=== PATIENT | male | born 1990 | race American Indian/Alaskan Native ===

== ENCOUNTER 2017-12-14 09:15 | Emergency (ER) | payer BC, OTHER ==
[2017-12-14 09:16] VITALS: BMI 25.0
[2017-12-14 09:35] VITALS: RESP 18; TEMP 98.7
--- NOTE | 2017-12-14 10:32 | C.PDOC ---
History Of Present Illness 27 year old male presents to the ED c/o stabbing right sided chest pain that woke him up this morning. Patient describes pain as non radiating that worsens with deep breathing and right arm movement. Patient states he had similar episode File[place] night that started during dinner and later resolved spontaneously. Patient denies any recent prolonged immobilization, sudden cardiac in his family, calf tenderness, nausea, vomit, diarrhea, SOB. Time Seen by Provider: 12/14/17 09:52 Chief Complaint (Nursing): Chest Pain History Per: Patient History/Exam Limitations: no limitations Onset/Duration Of Symptoms: Days Current Symptoms Are (Timing): Still Present Quality: Sharp Modifying Factors: None Exacerbating Factors: Movement, Deep Breathing Alleviating Factors: None Recent travel outside of the [place]: No Additional History Per: Patient Past Medical History Reviewed: Historical Data, Nursing Documentation, Vital Signs Vital Signs: Last Vital Signs Temp 98.7 F 12/14/17 09:32 Pulse 72 12/14/17 13:51 Resp 18 12/14/17 13:51 BP 118/62 12/14/17 13:51 Pulse Ox 97 12/14/17 13:51 - Medical History PMH: Anxiety, Seizures Denies: Chronic Kidney Disease Surgical History: No Surg Hx - [facility] Procedures INJECT/INFUSE ELECTROLYT (05/29/15) INJECT/INFUSE NEC (05/29/15) Family History: States: Diabetes Other Family History: No known cardiac history - Social History Hx Tobacco Use: Yes Hx Alcohol Use: Yes Hx Substance Use: No - Immunization History Hx Tetanus Toxoid Vaccination: No Hx Influenza Vaccination: No Hx Pneumococcal Vaccination: No Review Of Systems Constitutional: Negative for: Fever, Chills Cardiovascular: Positive for: Chest Pain. Negative for: Palpitations Respiratory: Negative for: Cough, Shortness of Breath Gastrointestinal: Negative for: Nausea, Vomiting, Abdominal Pain Musculoskeletal: Negative for: Back Pain Skin: Negative for: Rash Neurological: Negative for: Weakness, Numbness, Headache Physical Exam - Physical Exam Appears: Non-toxic, No Acute Distress Skin: Normal Color, Warm, Dry Head: Atraumatic, Normacephalic Eye(s): bilateral: Normal Inspection Nose: No Discharge, No Deformity Oral Mucosa: Moist Neck: Normal ROM, Supple Chest: Symmetrical, Tenderness (reproducible right sided chest pain medial to breast, worse with movement) Cardiovascular: Rhythm Regular, No Murmur Respiratory: Normal Breath Sounds, No Rhonchi, No Stridor, No Wheezing Gastrointestinal/Abdominal: Soft, No Tenderness, No Guarding, No Rebound Extremity: Normal ROM, No Pedal Edema, No Calf Tenderness, No Deformity, No Swelling Neurological/Psych: Oriented x3, Normal Speech, Normal Cognition Gait: Steady ED Course And Treatment - Laboratory Results Result Diagrams: 12/14/17 12:30 12/14/17 12:30 ECG: Interpreted By Me, Viewed By Me ECG Rhythm: Sinus Rhythm ECG Interpretation: Normal Rate From EC O2 Sat by Pulse Oximetry: 100 (On RA) Pulse Ox Interpretation: Normal - Radiology CXR: Viewed By Me, Read By Radiologist CXR Interpretation: Yes: Other (No focal consolidation, significant pleural effusion, or definite pneumothorax identified.) Medical Decision Making Medical Decision Making: Impression: Chest pain Plan: * EKG * normal * CXR * Toradol 30 mg IM pt still c/o pain s/p toradol. ;labs ordered, neg trop d-dimer. pt nore comfortable at this time with less chest wall tenderness on palaption, will d/c with nsaids and flexeril. Disposition Counseled Patient/Family Regarding: Studies Performed, Diagnosis, Need For Followup, Rx Given - Disposition Referrals: [facility] [Outside] Disposition: HOME/ ROUTINE Disposition Time: 13:27 Condition: STABLE Additional Instructions: Take ibuprofen as prescribed, Take muscle relaxant at bedtime, makes you sleepy. Follow up in medical clinic. Avoid heavy lifting. Prescriptions: Cyclobenzaprine [Cyclobenzaprine HCl] 10 mg PO HS #6 tab Ibuprofen [Motrin] 600 mg PO TID #30 tab Instructions: Chest Wall Pain (ED) Forms: [employer] (Danish), Work Excuse - Clinical Impression Clinical Impression: Chest wall pain - PA / SLASHER / Resident Statement MD/DO has reviewed & agrees with the documentation as recorded. - Scribe Statement The provider has reviewed the documentation as recorded by the Scribbob Vogel All medical record entries made by the Scribe were at my direction and personally dictated by me. I have reviewed the chart and agree that the record accurately reflects my personal performance of the history, physical exam, medical decision making, and the department course for this patient. I have also personally directed, reviewed, and agree with the discharge instructions and disposition.
--- NOTE | 2017-12-14 10:45 | RAD ---
HISTORY: right side cp COMPARISON: None available. TECHNIQUE: Chest PA and lateral FINDINGS: LUNGS: No focal consolidation. Please note that chest x-ray has limited sensitivity for the detection of pulmonary masses. PLEURA: No significant pleural effusion identified. No definite pneumothorax . CARDIOVASCULAR: The cardiomediastinal silhouette appears within normal limits of size. OSSEOUS STRUCTURES: No acute osseous abnormality identified. VISUALIZED UPPER ABDOMEN: Unremarkable. OTHER FINDINGS: None. IMPRESSION: No focal consolidation, significant pleural effusion, or definite pneumothorax identified.
[2017-12-14 12:35] LABS: BASO # 0.1 K/uL (0.0-0.2); BASO % 1.1 % (0.0-2.0); EOS # 0.3 K/uL (0.0-0.7); EOS % 5.4 % (0.0-4.0); HEMOGLOBIN 13.3 g/dL (12.0-18.0); LYMPH # 2.7 K/uL (1.0-4.3); LYMPH % 47.8 % (20.0-40.0); MEAN CELL VOLUME 89.9 fL (80.0-94.0); MEAN CORPUSCULAR HEMOGLOBIN 31.2 pg (27.0-31.0); MEAN CORPUSCULAR HGB CONC 34.8 g/dL (33.0-37.0); MEAN PLATELET VOLUME 6.7 fL (7.2-11.7); MONO # 0.4 K/uL (0.0-0.8); MONO % 7.6 % (0.0-10.0); NEUT # 2.1 K/uL (1.8-7.0); NEUT % 38.1 % (50.0-75.0); RBC 4.26 Mil/uL (4.40-5.90); RED CELL DISTRIBUTION WIDTH 13.2 % (11.5-14.5); WHITE BLOOD COUNT 5.6 K/uL (4.8-10.8)
[2017-12-14 12:46] LABS: ALB/GLOB RATIO 1.3 (1.0-2.1); ALBUMIN 3.8 g/dL (3.5-5.0); ALT/SGPT 28 U/L (21-72); AST/SGOT 20 U/L (17-59); BLOOD UREA NITROGEN 11 mg/dL (9-20); CALCIUM 9.1 mg/dl (8.6-10.4); GFR AFRICAN-AMERICAN > 60; GFR NON-AFRICAN AMERICAN > 60
[2017-12-14 13:51] VITALS: BP 118/62; PULSE 72
[2017-12-15 07:54] VITALS: O2SAT 100
--- NOTE | 2017-12-15 11:56 | CARD ---
APPROVED REPORT EKG Measurement Heart [id number] <Conclusion> Normal sinus rhythm Normal ECG
== END 2017-12-14 13:51 | disposition home or self-care (01) ==
LOC: C.ER 09:15
DX: R07.89 Other chest pain (principal)
CPT/HCPCS: 71046; 80053; 84484; 85025; 85378; 93005; 96372; 99283; J1885

== ENCOUNTER 2018-03-29 11:07 | Observation (INO) | payer OTHER ==
[2018-03-29 11:07] VITALS: BMI 25.0
[2018-03-29] MEDS ORDERED: Sodium Chloride 0.9% 1,000 ML IV ONE ×2 (11:16→12:14)
[2018-03-29] MEDS ORDERED: Sodium Chloride 0.9% 1,000 ML ONE (11:23)
[2018-03-29 11:25] LABS: BASO # 0.1 K/uL (0.0-0.2); BASO % 0.7 % (0.0-2.0); EOS # 0.3 K/uL (0.0-0.7); EOS % 2.9 % (0.0-4.0); LYMPH # 4.3 K/uL (1.0-4.3); LYMPH % 44.6 % (20.0-40.0); MEAN CELL VOLUME 96.8 fL (80.0-94.0); MEAN CORPUSCULAR HEMOGLOBIN 31.5 pg (27.0-31.0); MEAN CORPUSCULAR HGB CONC 32.5 g/dL (33.0-37.0); MEAN PLATELET VOLUME 7.3 fL (7.2-11.7); MONO # 1.1 K/uL (0.0-0.8); MONO % 11.1 % (0.0-10.0); NEUT # 3.9 K/uL (1.8-7.0); NEUT % 40.7 % (50.0-75.0); NRBC % 0.1 % (0.0-2.0); RBC 5.08 Mil/uL (4.40-5.90); RED CELL DISTRIBUTION WIDTH 13.7 % (11.5-14.5); WHITE BLOOD COUNT 9.6 K/uL (4.8-10.8)
--- NOTE | 2018-03-29 11:37 | RAD ---
PROCEDURE: CHEST RADIOGRAPH, 1 VIEW HISTORY: Diabetic COMPARISON: Comparison made with prior chest radiographs dated 12/14/2017 FINDINGS: LUNGS: No acute infiltrates. Chest x-ray has limited sensitivity for detection of pulmonary masses. PLEURA: No pneumothorax or pleural fluid seen. CARDIOVASCULAR: Normal. OSSEOUS STRUCTURES: No significant abnormalities. VISUALIZED UPPER ABDOMEN: Normal. OTHER FINDINGS: None. IMPRESSION: No active disease.
[2018-03-29 11:38] LABS: ALB/GLOB RATIO 1.2 (1.0-2.1); ALBUMIN 5.4 g/dL (3.5-5.0); ALT/SGPT 22 U/L (21-72); AST/SGOT 32 U/L (17-59); BLOOD UREA NITROGEN 11 mg/dL (9-20); CALCIUM 11.6 mg/dl (8.6-10.4); GFR AFRICAN-AMERICAN > 60; GFR NON-AFRICAN AMERICAN > 60
[2018-03-29 12:19] LABS: URINE AMORPHOUS SEDIMENT RARE /ul (<OCC); URINE BACTERIA RARE (<OCC); URINE BILIRUBIN NEGATIVE (NEGATIVE); URINE BLOOD 2+ (NEGATIVE); URINE CLARITY Hazy (Clear); URINE COLOR Yellow (YELLOW); URINE GLUCOSE (UA) NORMAL (Normal); URINE LEUKOCYTE ESTERASE NEG Leu/uL (Negative); URINE PROTEIN 2+ mg/dL (NEGATIVE); URINE UROBILINOGEN NORMAL mg/dL (0.2-1.0)
[2018-03-29 12:27] LABS: BARBITURATES, UR NEGATIVE (NEGATIVE); OPIATES, UR NEGATIVE (NEGATIVE); PHENCYCLIDINE, UR NEGATIVE (NEGATIVE)
--- NOTE | 2018-03-29 12:48 | C.PDOC ---
History Of Present Illness 27yo male with history of seizures, brought to ER for a rapid response after patient was noted to have seizure like activity in the hospital lobby. Patient has a history of seizure and was controlled until 2 years ago when the patient' s neurologist stopped the treatment. Patient's mother states she is unsure as to why the treatment stopped. She offers no other medical complaints. PMD: None provided Time Seen by Provider: 03/29/18 11:11 Chief Complaint (Nursing): Seizure History Per: Family History/Exam Limitations: no limitations Recent Seizure Activity Began: Just Before Arrival Number Of Seizures: One Quality Of Seizure: Generalized Past Medical History Reviewed: Historical Data, Nursing Documentation, Vital Signs Vital Signs: Last Vital Signs Temp 98.5 F 03/29/18 11:16 Pulse 76 03/29/18 12:26 Resp 14 03/29/18 12:26 BP 116/55 L 03/29/18 12:26 Pulse Ox 98 03/29/18 13:11 - Medical History PMH: Anxiety, Seizures Denies: Chronic Kidney Disease Surgical History: No Surg Hx - [facility] Procedures INJECT/INFUSE ELECTROLYT (05/29/15) INJECT/INFUSE NEC (05/29/15) Family History: States: No Known Family Hx, Unknown Family Hx, Diabetes - Social History Hx Tobacco Use: Yes Hx Alcohol Use: Yes Hx Substance Use: No - Immunization History Hx Tetanus Toxoid Vaccination: No Hx Influenza Vaccination: No Hx Pneumococcal Vaccination: No Review Of Systems Except As Marked, All Systems Reviewed And Found Negative. Constitutional: Negative for: Fever, Chills Genitourinary: Negative for: Incontinence Neurological: Positive for: Seizures. Negative for: Weakness, Numbness Physical Exam - Physical Exam Appears: Non-toxic, Other (convulsing) Skin: Normal Color Neck: Supple Chest: Symmetrical Cardiovascular: Rhythm Regular Respiratory: Normal Breath Sounds Gastrointestinal/Abdominal: Soft, No Tenderness ED Course And Treatment - Laboratory Results Result Diagrams: 03/29/18 11:23 03/29/18 11:23 Lab Interpretation: Abnormal (tox + benzo, amphetamines, THC, alcohol neg, Calcium 11.6H) ECG: Interpreted By Me ECG Rhythm: Sinus Rhythm ECG Interpretation: Normal Rate From EC O2 Sat by Pulse Oximetry: 98 (RA) Pulse Ox Interpretation: Normal - Radiology CXR: Interpreted by Me CXR Interpretation: Yes: No Acute Disease Medical Decision Making Medical Decision Making: Impression: Seizure Plan: -- UDS -- Ativan 2mg IV -- Keppra 500mg IV -- EKG -- IV Fluids -- Toradol 30mg IVP withdrawal seizures due to polysubstance abuse Hypercalcemia, transient changes in bicarb probably related to seizure activity and should be followed and repeated Extensively explained to pt probable etiology of szr, pt persists and prefers inpatient eval Disposition Doctor Will See Patient In The: Hospital Counseled Patient/Family Regarding: Studies Performed, Diagnosis - Disposition Disposition: HOSPITALIZED Disposition Time: 13:44 Condition: GOOD Forms: [employer] (Wol[place]) - Clinical Impression Clinical Impression: Withdrawal seizures, Hypercalcemia - Scribe Statement The provider has reviewed the documentation as recorded by the Scribe (Leticia Rodriguez) Provider Attestation: All medical record entries made by the Scribe were at my direction and personally dictated by me. I have reviewed the chart and agree that the record accurately reflects my personal performance of the history, physical exam, medical decision making, and the department course for this patient. I have also personally directed, reviewed, and agree with the discharge instructions and disposition.
[2018-03-29 13:10] LABS: BENZODIAZEPINES, UR POSITIVE (NEGATIVE)
[2018-03-29] MEDS ORDERED: Folic Acid 1 MG, Thiamine 100 MG, Multivitamin (MVI) 10 ML in Dextrose 5% In Water 1,00... IV SCH (18:00)
[2018-03-29] MEDS: Folic Acid 1 MG, Thiamine 100 MG, Multivitamin (MVI) 10 ML in Dextrose 5% In Water 1,00... IV SCH (18:53)
[2018-03-29 20:43] VITALS: RESP 20
--- NOTE | 2018-03-30 08:43 | CP.PCM.HP ---
History of Present Illness - History of Present Illness History of Present Illness: CC: seizure History Of Present Illness 27yo male with history of seizures, brought to ER for a rapid response after patient was noted to have seizure like activity in the hospital lobby. Patient has a history of seizure and was controlled until 2 years ago when the patient' s neurologist stopped the treatment. Patient's mother states she is unsure as to why the treatment stopped. She offers no other medical complaints. Present on Admission - Present on Admission Any Indicators Present on Admission: No Past Patient History - Tetanus Immunizations Tetanus Immunization: Up to Date - Past Medical History & Family History Past Medical History?: Yes - Past Social History Smoking Status: Light Smoker < 10 Cigarettes Daily - CARDIAC Hx Cardiac Disorders: No - PULMONARY Hx Respiratory Disorders: No - NEUROLOGICAL Hx Seizures: Yes - HEENT Hx HEENT Problems: No - RENAL Hx Chronic Kidney Disease: No - ENDOCRINE/METABOLIC Hx Endocrine Disorders: No - HEMATOLOGICAL/ONCOLOGICAL Hx Blood Disorders: No - INTEGUMENTARY Hx Dermatological Problems: No - MUSCULOSKELETAL/RHEUMATOLOGICAL Hx Falls: No - GASTROINTESTINAL Hx Gastrointestinal Disorders: No - GENITOURINARY/GYNECOLOGICAL Hx Genitourinary Disorders: No - PSYCHIATRIC Hx Anxiety: Yes Hx Substance Use: No - SURGICAL HISTORY Hx Surgeries: No - ANESTHESIA Hx Anesthesia: Yes Hx Anesthesia Reactions: No Meds Allergies/Adverse Reactions: Allergies Allergy/AdvReac Type Severity Reaction Status Date / Time No Known Allergies Allergy Verified 03/29/18 11:23 Results - Vital Signs Recent Vital Signs: Last Vital Signs Temp 98.1 F 03/30/18 00:19 Pulse 66 03/30/18 00:19 Resp 20 03/30/18 00:19 BP 108/66 03/30/18 00:19 Pulse Ox 98 03/30/18 00:19 - Labs Result Diagrams: 03/29/18 11:23 03/29/18 11:23 Labs: Laboratory Results - last 24 hr 03/29/18 03/29/18 03/29/18 11:12 11:23 11:23 WBC 9.6 D RBC 5.08 Hgb 16.0 D Hct 49.2 MCV 96.8 H D MCH 31.5 H MCHC 32.5 L RDW 13.7 Plt Count 333 MPV 7.3 Neut % (Auto) 40.7 L Lymph % (Auto) 44.6 H [place] % (Auto) 11.1 H Eos % (Auto) 2.9 Baso % (Auto) 0.7 Neut # (Auto) 3.9 Lymph # (Auto) 4.3 [place] # (Auto) 1.1 H Eos # (Auto) 0.3 Baso # (Auto) 0.1 Sodium 153 H Potassium 4.0 Chloride 103 Carbon Dioxide 15 L Anion Gap 39 H BUN 11 Creatinine 1.4 Est GFR ( Amer) > 60 Est GFR (Non-Af Amer) > 60 POC Glucose (mg/dL) 119 H Random Glucose 119 H Calcium 11.6 H Total Bilirubin 1.1 AST 32 ALT 22 Alkaline Phosphatase 74 Total Protein 9.8 H Albumin 5.4 H D Globulin 4.4 H Albumin/Globulin Ratio 1.2 Urine Color Urine Clarity Urine pH Ur Specific [place] Urine Protein Urine Glucose (UA) Urine Ketones Urine Blood Urine Nitrate Urine Bilirubin Urine Urobilinogen Ur Leukocyte Esterase Urine WBC (Auto) Urine RBC (Auto) Amorphous Sediment Urine Bacteria Urine Opiates Screen Urine Methadone Screen Ur Barbiturates Screen Ur Phencyclidine Scrn Ur Amphetamines Screen U Benzodiazepines Scrn U Oth Cocaine Metabols U Cannabinoids Screen Alcohol, Quantitative < 10 03/29/18 03/29/18 11:34 11:34 WBC RBC Hgb Hct MCV MCH MCHC RDW Plt Count MPV Neut % (Auto) Lymph % (Auto) [place] % (Auto) Eos % (Auto) Baso % (Auto) Neut # (Auto) Lymph # (Auto) [place] # (Auto) Eos # (Auto) Baso # (Auto) Sodium Potassium Chloride Carbon Dioxide Anion Gap BUN Creatinine Est GFR ( Amer) Est GFR (Non-Af Amer) POC Glucose (mg/dL) Random Glucose Calcium Total Bilirubin AST ALT Alkaline Phosphatase Total Protein Albumin Globulin Albumin/Globulin Ratio Urine Color Yellow Urine Clarity Hazy Urine pH 5.0 Ur Specific [place] 1.009 Urine Protein 2+ H Urine Glucose (UA) Normal Urine Ketones Trace Urine Blood 2+ H Urine Nitrate Negative Urine Bilirubin Negative Urine Urobilinogen Normal Ur Leukocyte Esterase Neg Urine WBC (Auto) 2 Urine RBC (Auto) 1 Amorphous Sediment Rare H Urine Bacteria Rare Urine Opiates Screen Negative Urine Methadone Screen Negative Ur Barbiturates Screen Negative Ur Phencyclidine Scrn Negative Ur Amphetamines Screen Positive H U Benzodiazepines Scrn Positive U Oth Cocaine Metabols Negative U Cannabinoids Screen Positive H Alcohol, Quantitative
[2018-03-30] MEDS ORDERED: Pneumococcal 23-Valent Vaccine IM ONE (10:00)
[2018-03-30] MEDS ORDERED: Folic Acid 1 MG, Thiamine 100 MG, Multivitamin (MVI) 10 ML in Dextrose 5% In Water 1,00... IV SCH (10:30)
--- NOTE | 2018-03-30 12:16 | CARD ---
APPROVED REPORT EKG Measurement Heart [id number] <Conclusion> Sinus bradycardia with sinus arrhythmia Otherwise normal ECG
[2018-03-30] MEDS: Folic Acid 1 MG, Thiamine 100 MG, Multivitamin (MVI) 10 ML in Dextrose 5% In Water 1,00... IV SCH (17:36)
--- NOTE | 2018-03-31 00:24 | CP.PCM.PN ---
Subjective - Date & Time of Evaluation Date of Evaluation: 03/30/18 Time of Evaluation: 20:40 - Subjective Subjective: Pt was admitted for questionable seizure, pt was seen and examined, pt had h/o poly subastance abuse, now he is seizure free, afberile, seen by neurology, vitals stable Objective - Vital Signs/Intake and Output Vital Signs (last 24 hours): Temp Pulse Resp BP Pulse Ox 98.6 F 62 20 113/67 99 03/30/18 23:56 03/30/18 23:56 03/30/18 23:56 03/30/18 23:56 03/30/18 23:56 Intake and Output: 03/30/18 03/31/18 18:59 06:59 Intake Total 960 900 Balance 960 900 - Medications Medications: Current Medications Acetaminophen (Tylenol 325mg Tab) 650 mg PO Q6 PRN PRN Reason: Headache Last Admin: 03/29/18 19:55 Dose: 650 mg Folic Acid 1 mg/ Thiamine HCl 100 mg/ Multivitamins/Vitamin C 10 ml/ Dextrose 1 ,011.2 mls @ 100 mls/hr IV Q24H SHERRIE Last Admin: 03/30/18 17:36 Dose: 100 mls/hr Metoclopramide HCl (Reglan) 10 mg IVP Q6 PRN PRN Reason: Nausea/Vomiting Last Admin: 03/30/18 18:49 Dose: 10 mg - Labs Labs: 03/29/18 11:23 03/29/18 11:23 - Constitutional Appears: Toxic, No Acute Distress - Head Exam Head Exam: ATRAUMATIC, NORMAL INSPECTION, NORMOCEPHALIC - Eye Exam Eye Exam: EOMI, Normal appearance, PERRL Pupil Exam: NORMAL ACCOMODATION, PERRL - Respiratory Exam Respiratory Exam: Clear to Ausculation Bilateral, NORMAL BREATHING PATTERN - Cardiovascular Exam Cardiovascular Exam: REGULAR RHYTHM, +S1, +S2. absent: Murmur - GI/Abdominal Exam GI & Abdominal Exam: Soft, Normal Bowel Sounds. absent: Tenderness Assessment and Plan (1) Alcohol abuse Status: Acute (2) Hepatitis Status: Acute (3) Withdrawal seizures Status: Acute
--- NOTE | 2018-03-31 05:22 | CON ---
DATE: HISTORY OF PRESENT ILLNESS: This is a 27-year-old black male with past medical history of seizure, came here with seizures and patient stopped the medication, he was on seizure medicines, stopped by himself. PAST MEDICAL HISTORY: Seizure disorder, anxiety. REVIEW OF SYSTEMS: A 10-point review of system was negative. PHYSICAL EXAMINATION: VITAL SIGNS: Blood pressure 116/55. NEUROLOGIC: Alert, awake, oriented x3. No aphasia. Cranial nerves II through XII were tested, pupils reactive, EOM intact. Visual field full. No facial asymmetry. Tongue midline. Motor examination, moves all the extremities equally. Tone normal. Deep tendon reflexes 1+. Both plantars are downgoing. Sensory appears intact. Cerebellar, gait deferred. LABORATORY DATA: WBC 9.6, hemoglobin 16, hematocrit 49.2, platelets 333, sodium 153, potassium 4, chloride 103, CO2 15, glucose 190, BUN 11, creatinine 1.4. IMPRESSION: Seizure disorder, continue Keppra 500 mg p.o. b.i.d. and we will wait for EEG result. PLAN: Continue present management. We will follow up. Dada Zhang MD
--- NOTE | 2018-03-31 14:06 | CP.PCM.PN ---
Subjective - Date & Time of Evaluation Date of Evaluation: 03/31/18 Time of Evaluation: 11:00 - Subjective Subjective: alert and orientedx3, no sob ,no seizures, NAD. Objective - Vital Signs/Intake and Output Vital Signs (last 24 hours): Temp Pulse Resp BP Pulse Ox 98.6 F 62 20 113/67 99 03/30/18 23:56 03/30/18 23:56 03/30/18 23:56 03/30/18 23:56 03/30/18 23:56 Intake and Output: 03/31/18 03/31/18 06:59 18:59 Intake Total 900 Balance 900 - Labs Labs: 03/29/18 11:23 03/29/18 11:23 Assessment and Plan - Assessment and Plan (Free Text) Assessment: Patient admitted with seizure disorder, polysubstance abuse, seen and examined. Alert and orientedx3, denies any pain or distress. Had EEG done today, cleared by neurologyst to be discharged on keppra 500mg po bid. Advised to follow up with PMD and neurologyst in 1 week.
[2018-03-31 14:07] LABS: BASO # 0.1 K/uL (0.0-0.2); EOS # 0.2 K/uL (0.0-0.7); EOS % 2.4 % (0.0-4.0); HEMOGLOBIN 13.3 g/dL (12.0-18.0); LYMPH # 2.3 K/uL (1.0-4.3); LYMPH % 31.8 % (20.0-40.0); MEAN CELL VOLUME 91.8 fL (80.0-94.0); MEAN CORPUSCULAR HEMOGLOBIN 31.4 pg (27.0-31.0); MEAN CORPUSCULAR HGB CONC 34.2 g/dL (33.0-37.0); MEAN PLATELET VOLUME 7.5 fL (7.2-11.7); MONO # 0.9 K/uL (0.0-0.8); MONO % 11.8 % (0.0-10.0); NEUT # 3.9 K/uL (1.8-7.0); RBC 4.24 Mil/uL (4.40-5.90); WHITE BLOOD COUNT 7.3 K/uL (4.8-10.8)
[2018-03-31 14:23] LABS: CALCIUM 8.7 mg/dl (8.6-10.4)
[2018-03-31 17:08] VITALS: BP 97/60; PULSE 60; TEMP 98.3; O2SAT 98
--- NOTE | 2018-03-31 23:33 | CP.PCM.DIS ---
Provider - Provider Date of Admission: 03/29/18 13:44 Attending physician: Manny Fregoso MD Time Spent in preparation of Discharge (in minutes): 45 Diagnosis - Discharge Diagnosis (1) Alcohol abuse Status: Acute (2) Hepatitis Status: Acute (3) Withdrawal seizures Status: Acute Hospital Course - Lab Results Lab Results: Most Recent Lab Values WBC 7.3 K/uL (4.8-10.8) 03/31/18 14:02 RBC 4.24 Mil/uL (4.40-5.90) L 03/31/18 14:02 Hgb 13.3 g/dL (12.0-18.0) D 03/31/18 14:02 Hct 38.9 % (35.0-51.0) 03/31/18 14:02 MCV 91.8 fL (80.0-94.0) D 03/31/18 14:02 MCH 31.4 pg (27.0-31.0) H 03/31/18 14:02 MCHC 34.2 g/dL (33.0-37.0) 03/31/18 14:02 RDW 13.0 % (11.5-14.5) 03/31/18 14:02 Plt Count 220 K/uL (130-400) D 03/31/18 14:02 MPV 7.5 fL (7.2-11.7) 03/31/18 14:02 Neut % (Auto) 53.0 % (50.0-75.0) 03/31/18 14:02 Lymph % (Auto) 31.8 % (20.0-40.0) 03/31/18 14:02 [place] % (Auto) 11.8 % (0.0-10.0) H 03/31/18 14:02 Eos % (Auto) 2.4 % (0.0-4.0) 03/31/18 14:02 Baso % (Auto) 1.0 % (0.0-2.0) 03/31/18 14:02 Neut # (Auto) 3.9 K/uL (1.8-7.0) 03/31/18 14:02 Lymph # (Auto) 2.3 K/uL (1.0-4.3) 03/31/18 14:02 [place] # (Auto) 0.9 K/uL (0.0-0.8) H 03/31/18 14:02 Eos # (Auto) 0.2 K/uL (0.0-0.7) 03/31/18 14:02 Baso # (Auto) 0.1 K/uL (0.0-0.2) 03/31/18 14:02 Sodium 144 mmol/L (132-148) 03/31/18 14:02 Potassium 4.1 mmol/L (3.6-5.2) 03/31/18 14:02 Chloride 107 mmol/L (98-107) 03/31/18 14:02 Carbon Dioxide 27 mmol/L (22-30) 03/31/18 14:02 Anion Gap 14 (10-20) 03/31/18 14:02 BUN 11 mg/dL (9-20) 03/31/18 14:02 Creatinine 1.8 mg/dL (0.8-1.5) H 03/31/18 14:02 Est GFR ( Amer) 56 03/31/18 14:02 Est GFR (Non-Af Amer) 46 03/31/18 14:02 POC Glucose (mg/dL) 119 mg/dL (65-110) H 03/29/18 11:12 Random Glucose 74 mg/dL (75-110) L 03/31/18 14:02 Calcium 8.7 mg/dl (8.6-10.4) 03/31/18 14:02 Total Bilirubin 1.1 mg/dL (0.2-1.3) 03/29/18 11:23 AST 32 U/L (17-59) 03/29/18 11:23 ALT 22 U/L (21-72) 03/29/18 11:23 Alkaline Phosphatase 74 U/L (38-126) 03/29/18 11:23 Total Protein 9.8 g/dL (6.3-8.3) H 03/29/18 11:23 Albumin 5.4 g/dL (3.5-5.0) H D 03/29/18 11:23 Globulin 4.4 gm/dL (2.2-3.9) H 03/29/18 11:23 Albumin/Globulin Ratio 1.2 (1.0-2.1) 03/29/18 11:23 Urine Color Yellow (YELLOW) 03/29/18 11:34 Urine Clarity Hazy (Clear) 03/29/18 11:34 Urine pH 5.0 (5.0-8.0) 03/29/18 11:34 Ur Specific [place] 1.009 (1.003-1.030) 03/29/18 11:34 Urine Protein 2+ mg/dL (NEGATIVE) H 03/29/18 11:34 Urine Glucose (UA) Normal mg/dL (Normal) 03/29/18 11:34 Urine Ketones Trace mg/dL (NEGATIVE) 03/29/18 11:34 Urine Blood 2+ (NEGATIVE) H 03/29/18 11:34 Urine Nitrate Negative (NEGATIVE) 03/29/18 11:34 Urine Bilirubin Negative (NEGATIVE) 03/29/18 11:34 Urine Urobilinogen Normal mg/dL (0.2-1.0) 03/29/18 11:34 Ur Leukocyte Esterase Neg [place]/uL (Negative) 03/29/18 11:34 Urine WBC (Auto) 2 /hpf (0-5) 03/29/18 11:34 Urine RBC (Auto) 1 /hpf (0-3) 03/29/18 11:34 Amorphous Sediment Rare /ul (<OCC) H 03/29/18 11:34 Urine Bacteria Rare (<OCC) 03/29/18 11:34 Urine Opiates Screen Negative (NEGATIVE) 03/29/18 11:34 Urine Methadone Screen Negative (NEGATIVE) 03/29/18 11:34 Ur Barbiturates Screen Negative (NEGATIVE) 03/29/18 11:34 Ur Phencyclidine Scrn Negative (NEGATIVE) 03/29/18 11:34 Ur Amphetamines Screen Positive (NEGATIVE) H 03/29/18 11:34 U Benzodiazepines Scrn Positive (NEGATIVE) 03/29/18 11:34 U Oth Cocaine Metabols Negative (NEGATIVE) 03/29/18 11:34 U Cannabinoids Screen Positive (NEGATIVE) H 03/29/18 11:34 Alcohol, Quantitative < 10 mg/dl (0-10) 03/29/18 11:23 - Hospital Course Hospital Course: Pt seen and examined is for discharge today, neurology cleared him Discharge Exam - Head Exam Head Exam: ATRAUMATIC, NORMAL INSPECTION, NORMOCEPHALIC - Respiratory Exam Respiratory Exam: Decreased Breath Sounds, Rales, Rhonchi - Cardiovascular Exam Cardiovascular Exam: REGULAR RHYTHM, +S1, +S2 - GI/Abdominal Exam GI & Abdominal Exam: Normal Bowel Sounds Discharge Plan - Discharge Medications Prescriptions: levETIRAcetam [Keppra] 500 mg IVPB Q12H #60 vial - Follow Up Plan Condition: GOOD Disposition: HOME/ ROUTINE Instructions: Seizures, Adult (DC), Drug Withdrawal (DC), Alcohol Abuse and Alcoholism (DC) Referrals: Manny Fregoso MD [Staff Provider] -
== END 2018-03-31 13:47 | disposition home or self-care (01) ==
LOC: C.ER 11:07 → C.3T 13:44 → C.9E 13:44
PROVIDERS: ADMIT Internal Medicine; ATTEND Internal Medicine
DX: F13.239 Sedative, hypnotic or anxiolytic dependence with withdrawal, unspecified (principal); F10.10 Alcohol abuse, uncomplicated; Y90.9 Presence of alcohol in blood, level not specified; E83.52 Hypercalcemia; K75.9 Inflammatory liver disease, unspecified; Z87.891 Personal history of nicotine dependence; F15.10 Other stimulant abuse, uncomplicated
CPT/HCPCS: 36415; 71045; 80048; 80053; 80320; 80324; 80345; 80346; 80349; 80353; 80358; 80361; 81001; 82948; 83992; 85025; 93005; 95812; 96374; 99285; G0378; J1885; J1953; J2060; J2765; J3411; J7040; J7070

== ENCOUNTER 2018-04-23 07:36 | Emergency (ER) | payer OTHER ==
[2018-04-23 07:36] VITALS: BMI 25.0
[2018-04-23 07:54] VITALS: BP 126/75; PULSE 61; RESP 20; TEMP 98.3; O2SAT 100
--- NOTE | 2018-04-23 08:52 | RAD ---
PROCEDURE: Left Foot Radiographs. HISTORY: injury to the 2nd, 3rd, 4th toes COMPARISON: None. FINDINGS: BONES: There is a comminuted fracture proximal phalanx 2nd toe. JOINTS: Joint spaces preserved SOFT TISSUES: Soft tissue swelling surrounds proximal phalanx 2nd toe OTHER FINDINGS: None. IMPRESSION: Comminuted fracture proximal phalanx 2nd digit with surrounding soft tissue swelling
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
== END 2018-04-23 09:34 | disposition home or self-care (01) ==
LOC: C.ER 07:36
DX: S92.512A Displaced fracture of proximal phalanx of left lesser toe(s), initial encounter for closed fracture (principal); W22.8XXA Striking against or struck by other objects, initial encounter; Z72.0 Tobacco use

== ENCOUNTER 2018-06-30 14:35 | Inpatient (IN) | payer OTHER ==
[2018-06-30 14:35] VITALS: BMI 25.0
[2018-06-30 16:04] LABS: BASO % 0.7 % (0.0-2.0); EOS # 0.2 K/uL (0.0-0.7); EOS % 3.4 % (0.0-4.0); HEMOGLOBIN 14.2 g/dL (12.0-18.0); LYMPH # 2.1 K/uL (1.0-4.3); LYMPH % 34.5 % (20.0-40.0); MEAN CORPUSCULAR HEMOGLOBIN 30.9 pg (27.0-31.0); MEAN PLATELET VOLUME 6.8 fL (7.2-11.7); MONO # 0.7 K/uL (0.0-0.8); MONO % 11.7 % (0.0-10.0); NEUT % 49.7 % (50.0-75.0); NRBC % 0.2 % (0.0-2.0); RBC 4.59 Mil/uL (4.40-5.90); RED CELL DISTRIBUTION WIDTH 13.1 % (11.5-14.5); WHITE BLOOD COUNT 6.1 K/uL (4.8-10.8)
--- NOTE | 2018-06-30 16:09 | C.PDOC ---
History Of Present Illness 28 year old male presents to the ER requesting detox from xanax and marijuana, last use was 5 days ago. Denies any other complaints. Time Seen by Provider: 06/30/18 15:43 Chief Complaint (Nursing): Substance Abuse History Per: Patient History/Exam Limitations: no limitations Onset/Duration Of Symptoms: Days Current Symptoms Are (Timing): Still Present Associated Symptoms: denies: Suicidal Thoughts, Suicidal Plan Involuntary Hold By: None Recent travel outside of the [place]: No Past Medical History Reviewed: Historical Data, Nursing Documentation, Vital Signs Vital Signs: Last Vital Signs Temp 98.5 F 07/01/18 06:20 Pulse 68 07/01/18 06:20 Resp 18 07/01/18 06:20 BP 107/65 07/01/18 06:20 Pulse Ox 100 07/01/18 06:20 - Medical History PMH: Anxiety, Seizures Denies: Chronic Kidney Disease - [facility] Procedures INJECT/INFUSE ELECTROLYT (05/29/15) INJECT/INFUSE NEC (05/29/15) Family History: States: Diabetes - Social History Hx Tobacco Use: Yes Hx Alcohol Use: Yes Hx Substance Use: Yes - Immunization History Hx Tetanus Toxoid Vaccination: No Hx Influenza Vaccination: No Hx Pneumococcal Vaccination: No Review Of Systems Constitutional: Negative for: Fever, Chills Cardiovascular: Negative for: Chest Pain, Palpitations Respiratory: Negative for: Cough, Shortness of Breath Gastrointestinal: Negative for: Nausea, Vomiting Neurological: Negative for: Weakness, Numbness Physical Exam - Physical Exam Appears: Non-toxic Skin: Normal Color, Warm, Dry Head: Atraumatic, Normacephalic Eye(s): bilateral: Normal Inspection Oral Mucosa: Moist Chest: Symmetrical, No Tenderness Cardiovascular: Rhythm Regular Respiratory: Normal Breath Sounds, No Rales, No Rhonchi, No Wheezing Gastrointestinal/Abdominal: Soft, No Tenderness Neurological/Psych: Oriented x3, Normal Speech ED Course And Treatment - Laboratory Results Result Diagrams: 06/30/18 15:57 06/30/18 15:57 O2 Sat by Pulse Oximetry: 99 (Room air) Pulse Ox Interpretation: Normal Medical Decision Making Medical Decision Making: Plan: * blood work * urinalysis * crisis Disposition Counseled Patient/Family Regarding: Studies Performed, Diagnosis - Disposition Disposition: HOSPITALIZED Disposition Time: 20:30 Condition: STABLE - POA Present On Arrival: None - Clinical Impression Clinical Impression: Drug dependence - Scribe Statement The provider has reviewed the documentation as recorded by the Scribe Marcus Potts All medical record entries made by the Scribe were at my direction and personally dictated by me. I have reviewed the chart and agree that the record accurately reflects my personal performance of the history, physical exam, medical decision making, and the department course for this patient. I have also personally directed, reviewed, and agree with the discharge instructions and disposition.
[2018-06-30 16:14] LABS: URINE BILIRUBIN NEGATIVE (NEGATIVE); URINE BLOOD NEGATIVE (NEGATIVE); URINE CLARITY Clear (Clear); URINE COLOR Yellow (YELLOW); URINE GLUCOSE (UA) NORMAL (Normal); URINE LEUKOCYTE ESTERASE NEG Leu/uL (Negative); URINE PROTEIN 1+ mg/dL (NEGATIVE)
[2018-06-30 16:38] LABS: ALB/GLOB RATIO 1.6 (1.0-2.1); ALBUMIN 4.6 g/dL (3.5-5.0); ALT/SGPT 32 U/L (21-72); AST/SGOT 25 U/L (17-59); BLOOD UREA NITROGEN 12 mg/dL (9-20); CALCIUM 9.6 mg/dl (8.6-10.4); GFR NON-AFRICAN AMERICAN > 60
[2018-06-30 16:48] LABS: BARBITURATES, UR NEGATIVE (NEGATIVE); OPIATES, UR NEGATIVE (NEGATIVE); PHENCYCLIDINE, UR NEGATIVE (NEGATIVE)
[2018-06-30 16:49] LABS: BENZODIAZEPINES, UR POSITIVE (NEGATIVE)
--- NOTE | 2018-06-30 20:47 | PCM.BM ---
<JuventinoJennyfer - Last Filed: 06/30/18 20:45> Treatment Plan Problems - Problems identified on initial assessmt potential for benzo withdrawal Date Initiated: 06/30/18 Time Initiated: 20:46 Assessment reference: NA Status: Active Treatment assets and liabiliti Patient Assests: ADL independent, negotiates basic needs Patient Liabilities: substance abuse (Benzo) - Milieu Protocol Maintain good personal hygiene: daily Encourage regular showers, daily Remind patient to perform daily oral care, daily Assist patient to perform ADL's Conduct patient checks and document Observation sheet: Q15 minutes Maintain personal safety: every shift Educate patient to report safety concerns to staff, every shift Monitor environment for contraband/sharps Medication safety: Monitor for expected outcome, potential side effects: every shift, Assess barriers to learning: every shift, Assess readiness for medication education: every shift <Nae Sage - Last Filed: 07/02/18 14:01> - Diagnosis (1) Sedative, hypnotic or anxiolytic use disorder, severe, dependence Status: Acute Interventions: 07/01/18 14:01 * Assess 7x/week regarding severity of withdrawal * Educate regarding risks, benefits, side effects and alternatives of medications * Use Motivational Interviewing for abstinence * Use CBT for relapse prevention * Medication management for withdrawal symptoms * Encourage medication assisted treatment *
--- NOTE | 2018-07-02 11:35 | PCM.PSYCH ---
Initial Psychiatric Evaluation - Initial Psychiatric Evaluation Type of Admission: Voluntary Legal Status: Capacity Chief Complaint (in patient's own words): "I must stop these" History of Present Illness and Precipitating Events: The patient is seen, chart reviewed and case discussed. This is a 28-year-old -[place] male, he is engaged and has a 3-month- old child. 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 He says he recently broke up with his fiance because of his drug use. The patient states he had been using Xanax around for the grams per day, sometimes more, for the last 3 years. He increased it over the years and this year he had 3 seizures when he couldn't use it. He also describes withdrawal symptoms including some shakes and severe anxiety. As per his family he also would gets aggressive and got into fights. He also uses 3 blunts of marijuana every single day for years. This is his first detox and he has never been to rehabilitation Denies other drug and alcohol use He feels depressed and sometimes suicidal but currently has no plan or intention. Past psych history: Denies Family psych history: Denies Medical history: Bronchitis and history of seizures Current Medications: Active Medications Generic Name Dose Route Start Last Admin Trade Name Freq PRN Reason Stop Dose Admin Chlordiazepoxide 25 mg 06/30/18 21:52 06/30/18 22:13 Librium PO 25 mg Q6 PRN Administration benzo withdrawal Chlordiazepoxide 25 mg 07/01/18 12:00 07/02/18 11:28 Librium PO 07/05/18 11:59 25 mg Q6H SHERRIE Administration Taper Gabapentin 300 mg 07/01/18 10:30 07/02/18 09:36 Neurontin PO 300 mg BID SHERRIE Administration Hydroxyzine HCl 25 mg 06/30/18 20:51 07/01/18 21:20 Atarax PO 25 mg Q6 PRN Administration Anxiety Ibuprofen 600 mg 06/30/18 21:26 Motrin Tab PO Q8 PRN Pain, moderate (4-7) Trazodone HCl 50 mg 06/30/18 20:50 07/01/18 21:20 Desyrel PO 50 mg HS PRN Administration Insomnia Past Psychiatric History - Past Psychiatric History Previous Treatment History: None Pertinent Medical Hx (Current Medical&Sleep Prob, Allergies): Allergies Allergy/AdvReac Type Severity Reaction Status Date / Time No Known Allergies Allergy Verified 03/29/18 11:23 Acetaminophen [Tylenol] 325 mg PO Q6 PRN #30 tab 04/23/18 levETIRAcetam [Keppra] 500 mg PO BID 06/30/18 Review of Systems - Psychiatric Psychiatric: Abnormal Sleep Pattern, Anhedonia, Anxiety, Change in Appetite, Depression, Difficulty Concentrating, Irritability, Mood Swings. absent: Homicidal Ideation, Paranoia, Suicidal Ideation Mental Status Examination - Personal Presentation Personal Presentation: Looks older than stated age - Affect Affect: Constricted - Motor Activity Motor Activity: Calm - Reliability in Providing Information Reliability in Providing Information: Fair - Speech Speech: Organized - Mood Mood: Depressed, Anxious - Formal Thought Process Formal Thought Process: No Impairment - Cognitive Functions Orientation: Person, Place, Situation, Time Sensorium: Alert Attention/Concentration: Attentive Estimate of Intelligence: Average Judgement: Intact, as evidence by: Insight regarding need for hospitalization Memory: Recent intact, as evidence by: Ability to recall events of the day, Remote intact, as evidenced by: Abilit to recall sig. life events - Risk Risk: Withdrawal, Diminished functioning - Strength & Assets Inventory Strength & Assets Inventory: Family support, Cooperative - Limitations Limitations: Other DSM 5 DX - DSM 5 DSM 5 Diagnosis: Sedative, hypnotic or anxiolytic use disorder, severe Sedative, hypnotic or anxiolytic withdrawal Cannabis use disorder, severe Depressive disorder unspecified - Recommended/Plan of Treatment Treatment Recommendations and Plan of Treatment: Taper with librium Gabapentin for augmentation Hold Keppra for now - he has abjegaxgg-uscpszubdm-rhzysqt seizures As needed medications All risks, benefits and alternatives of the meds discussed, and the pt agreed and understood. Attend groups and activities Supportive therapy and psychoeducation [place] for abstinence CBT for relapse prevention Encourage MAT Refer to rehab or IOP, and self-help groups Smoking cessation with [place] Nicotine patch if needed 34 min Projected ELOS: 4 days Prognosis: good w treatment - Smoking Cessation Smoking Cessation Initiated: Yes
[2018-07-02 13:11] VITALS: RESP 18
--- NOTE | 2018-07-02 14:05 | PCM.PYCHPN ---
Psychiatric Progress Note - Psychiatric Progress Note Patient seen today, length of contact: 16 min Patient Chief Complaint: "I can't sleep" Problems Identified/Issues Discussed: The pt is seen, chart reviewed, case discussed with staff. The pt is compliant with medications and reports no side-effects. Symptoms are improving but needs more time to stabilize. Pt attends groups and activities. Support given, psycho-education provided. After care discussed. Medication Change: Yes (detox changes daily) Medical Record Reviewed: Yes Mental Status Examination - Cognitive Function Orientation: Person, Place, Situation, Time Memory: Intact Attention: WNL Concentration: Poor Association: WNL Fund of Knowledge: WNL - Mood Mood: Depressed, Anxious - Affect Affect: Constricted - Speech Speech: Appropriate - Formal Thought Process Formal Thought Process: No Impairment - Suicidal Ideation Suicidal Ideation: No - Homicidal Ideation Homicidal Ideation: No Goal/Treatment Plan - Goal/Treatment Plan Need for Continued Stay: Discharge may exacerbated symptoms, Severe functional impairment Progress Toward Problem(s) and Goals/Treatment Plan: Taper with librium Gabapentin for augmentation Hold Keppra for now - he has izihkkyep-tpvvilgfrs-szxodss seizures As needed medications All risks, benefits and alternatives of the meds discussed, and the pt agreed and understood. Attend groups and activities Supportive therapy and psychoeducation [place] for abstinence CBT for relapse prevention Encourage MAT Refer to rehab or IOP, and self-help groups Smoking cessation with [place] Nicotine patch if needed Estimated Date of D/C: 07/04/18
[2018-07-03 06:26] VITALS: TEMP 98.4
--- NOTE | 2018-07-03 10:07 | PCM.PYCHDC ---
Mental Status Examination - Mental Status Examination Orientation: Person Discharge Summary - Discharge Note Consultations:: List each consultation separately and include: 1. Reason for request. 2. Findings. 3. Follow-up Summary of Hospital Course include:: 1. Description of specific treatment plan utilized for patients during their course of treatmen. 2. Summarize the time- course for resolution of acute symptoms and/or regressed behaviors. 3. Describe issues identified and worked on during hospitalization. 4. Describe medication utilized. 5. Describe medical problems identified and treated. 6. Reassessment of suicide risk Summary of Hospital Course: The patient is seen, chart reviewed and case discussed. This is a 28-year-old -Ivorian male, he is engaged and has a 3-month- old child. 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 He says he recently broke up with his fiance because of his drug use. The patient states he had been using Xanax around for the grams per day, sometimes more, for the last 3 years. He increased it over the years and this year he had 3 seizures when he couldn't use it. He also describes withdrawal symptoms including some shakes and severe anxiety. As per his family he also would gets aggressive and got into fights. He also uses 3 blunts of marijuana every single day for years. This is his first detox and he has never been to rehabilitation Denies other drug and alcohol use He feels depressed and sometimes suicidal but currently has no plan or intention. Past psych history: Denies Family psych history: Denies Medical history: Bronchitis and history of seizures [facility] IOP - Diagnosis (1) Sedative, hypnotic or anxiolytic use disorder, severe, dependence Current Visit: Yes Status: Acute - Final Diagnosis (DSM 5) Condition upon Discharge: STABLE Disposition: HOME/ ROUTINE Follow-up Treatment Plan: Taper with librium Gabapentin for augmentation Hold Keppra for now - he has beeepdwfk-qgyifbmgoz-yesjvsk seizures As needed medications All risks, benefits and alternatives of the meds discussed, and the pt agreed and understood. Attend groups and activities Supportive therapy and psychoeducation [place] for abstinence CBT for relapse prevention Encourage MAT Refer to rehab or IOP, and self-help groups Smoking cessation with [place] Nicotine patch if needed Prescriptions/Medication Reconciliation: Gabapentin [Neurontin] 300 mg PO BID #60 cap traZODone [Desyrel] 100 mg PO HS PRN #30 tab PRN Reason: Insomnia
[2018-07-03 10:46] VITALS: BP 105/70; PULSE 115; O2SAT 98
== END 2018-07-03 10:52 | disposition home or self-care (01) | DRG 747 ==
LOC: C.ER 14:35 → C.7D 20:26
PROC: HZ2ZZZZ Detoxification Services for Substance Abuse Treatment (ICD-10-PCS; principal; 2018-06-30)
PROC: HZ59ZZZ Individual Psychotherapy for Substance Abuse Treatment, Supportive (ICD-10-PCS; 2018-06-30)
PROC: HZ46ZZZ Group Counseling for Substance Abuse Treatment, Psychoeducation (ICD-10-PCS; 2018-06-30)
PROC: GZ3ZZZZ Medication Management (ICD-10-PCS; 2018-06-30)
DX: F13.230 Sedative, hypnotic or anxiolytic dependence with withdrawal, uncomplicated (principal); F12.20 Cannabis dependence, uncomplicated; F32.9 Major depressive disorder, single episode, unspecified; F41.9 Anxiety disorder, unspecified; R56.9 Unspecified convulsions; Z87.891 Personal history of nicotine dependence

== ENCOUNTER 2018-10-26 10:22 | Emergency (ER) | payer OTHER ==
[2018-10-26 10:22] VITALS: BMI 25.0
[2018-10-26 10:24] VITALS: TEMP 97.8; O2SAT 100
[2018-10-26 10:53] LABS: BASO # 0.1 K/uL (0.0-0.2); BASO % 1.3 % (0.0-2.0); EOS # 0.2 K/uL (0.0-0.7); EOS % 3.8 % (0.0-4.0); HEMOGLOBIN 14.3 g/dL (12.0-18.0); LYMPH # 1.9 K/uL (1.0-4.3); LYMPH % 35.8 % (20.0-40.0); MEAN CELL VOLUME 91.9 fL (80.0-94.0); MEAN CORPUSCULAR HEMOGLOBIN 30.8 pg (27.0-31.0); MEAN CORPUSCULAR HGB CONC 33.6 g/dL (33.0-37.0); MEAN PLATELET VOLUME 6.8 fL (7.2-11.7); MONO # 0.5 K/uL (0.0-0.8); MONO % 8.7 % (0.0-10.0); NEUT # 2.7 K/uL (1.8-7.0); NEUT % 50.4 % (50.0-75.0); NRBC % 0.1 % (0.0-2.0); RBC 4.63 Mil/uL (4.40-5.90); WHITE BLOOD COUNT 5.4 K/uL (4.8-10.8)
[2018-10-26 11:13] LABS: ALB/GLOB RATIO 1.6 (1.0-2.1); ALBUMIN 4.7 g/dL (3.5-5.0); ALT/SGPT 28 U/L (21-72); AST/SGOT 27 U/L (17-59); BLOOD UREA NITROGEN 15 mg/dL (9-20); CALCIUM 9.4 mg/dl (8.6-10.4); GFR NON-AFRICAN AMERICAN > 60
--- NOTE | 2018-10-26 12:35 | C.PDOC ---
History Of Present Illness 28 y/o male presents to the ED with complaint of feeling an aura, states he is about to have a seizure. Patient reports a headache along with numbness to the left arm and leg. He admits to noncompliance with his Keppra for the past 3 weeks. Last known seizure was on 03/31/2018. Patient denies any visual changes, facial droop, slurred speech, gait changes, fevers, chills, nausea, or vomiting. Time Seen by Provider: 10/26/18 10:24 Chief Complaint (Nursing): Seizure History Per: Patient History/Exam Limitations: no limitations Precipitating Factor(s): Missed Dose Of Anti-seizure Medication Past Medical History Reviewed: Historical Data, Nursing Documentation, Vital Signs Vital Signs: Last Vital Signs Temp 97.8 F 10/26/18 10:23 Pulse 72 10/26/18 10:23 Resp 18 10/26/18 10:23 BP 143/89 10/26/18 10:23 Pulse Ox 100 10/26/18 10:23 - Medical History PMH: Anxiety, Seizures Denies: Diabetes, Hepatitis, HIV, HTN, Chronic Kidney Disease, Sexually Transmitted Disease - [facility] Procedures DETOXIFICATION SERVICES FOR SUBSTANCE ABUSE TREATMENT (06/30/18) GROUP METAL TRIM ERECTOR FOR SUBSTANCE ABUSE TREATMENT, PSYCHOEDUCATION (06/30/18) INDIV PSYCHOTHERAPY FOR SUBSTANCE ABUSE TREATMENT, SUPPORT (06/30/18) INJECT/INFUSE ELECTROLYT (05/29/15) INJECT/INFUSE NEC (05/29/15) MEDICATION MANAGEMENT (06/30/18) Family History: States: Diabetes - Social History Hx Tobacco Use: Yes Hx Alcohol Use: Yes Hx Substance Use: Yes - Immunization History Hx Tetanus Toxoid Vaccination: No Hx Influenza Vaccination: No Hx Pneumococcal Vaccination: No Review Of Systems Constitutional: Negative for: Fever, Other (Facial droop) Eyes: Negative for: Vision Change Cardiovascular: Negative for: Chest Pain Respiratory: Negative for: Shortness of Breath Gastrointestinal: Negative for: Nausea, Vomiting Neurological: Positive for: Numbness (left arm and leg), Seizures (feeling an aura), Headache. Negative for: Incoordination, Change in Speech Physical Exam - Physical Exam Appears: Non-toxic, No Acute Distress, Other (Appears anxious) Skin: Normal Color, Warm, Dry Head: Atraumatic, Normacephalic Eye(s): bilateral: Normal Inspection, PERRL, EOMI Oral Mucosa: Moist Neck: Normal ROM Chest: Symmetrical Cardiovascular: Rhythm Regular, No Murmur Respiratory: Normal Breath Sounds, No Rales, No Rhonchi, No Wheezing Gastrointestinal/Abdominal: Soft, No Tenderness, No Distention Back: Normal Inspection, No CVA Tenderness Extremity: Bilateral: Atraumatic, Normal Color And Temperature Pulses: Left Radial: Normal, Right Radial: Normal Neurological/Psych: Oriented x3, Normal Speech, Normal Cranial Nerves (2-12 intact), Normal Motor (Right side 5/5 strength upper and lower extremities; Left side 4/5 strength upper and lower extremities), Normal Sensation Gait: Steady Other Neurological Findings: No Facial Palsy ED Course And Treatment - Laboratory Results Result Diagrams: 10/26/18 10:40 10/26/18 10:40 O2 Sat by Pulse Oximetry: 100 (RA) Pulse Ox Interpretation: Normal Progress Note: Blood work and UDS ordered. Patient loaded with Keppra IV. Disposition Counseled Patient/Family Regarding: Studies Performed, Diagnosis, Need For Followup, Rx Given - Disposition Referrals: [facility] [Outside] Disposition: HOME/ ROUTINE Disposition Time: 13:25 Condition: STABLE Additional Instructions: FOLLOW UP WITH YOUR DOCTOR/CLINIC IN 1-2 DAYS USE YOUR MEDICATION TWICE DAILY RETURN TO ER IF SYMPTOMS WORSEN Prescriptions: Levetiracetam [Keppra] 500 mg PO BID #60 tablet Instructions: Epilepsy in Adults Forms: [facility] (Japanese) Print Language: ROMANSH - Clinical Impression Clinical Impression: Seizure disorder - Scribe Statement The provider has reviewed the documentation as recorded by the Haroon Doherty Provider Attestation: All medical record entries made by the Haroon were at my direction and personally dictated by me. I have reviewed the chart and agree that the record accurately reflects my personal performance of the history, physical exam, medical decision making, and the department course for this patient. I have also personally directed, reviewed, and agree with the discharge instructions and disposition.
[2018-10-26 12:52] LABS: BARBITURATES, UR NEGATIVE (NEGATIVE); OPIATES, UR NEGATIVE (NEGATIVE); PHENCYCLIDINE, UR NEGATIVE (NEGATIVE)
[2018-10-26 13:11] LABS: BENZODIAZEPINES, UR POSITIVE (NEGATIVE)
[2018-10-26 13:24] VITALS: BP 130/83; PULSE 66; RESP 12
== END 2018-10-26 13:50 | disposition home or self-care (01) ==
LOC: C.ER 10:22
DX: G40.909 Epilepsy, unspecified, not intractable, without status epilepticus (principal); F41.9 Anxiety disorder, unspecified; Z91.14 Patient's other noncompliance with medication regimen
CPT/HCPCS: 80053; 80324; 80345; 80346; 80349; 80353; 80358; 80361; 82550; 82948; 83992; 85025; 96374; 99285; J1953